=== PATIENT | female | born 1965 | race Two or more races ===

== ENCOUNTER 2016-06-10 07:47 | Emergency (ER) | payer OTHER ==
[2016-06-10 07:56] VITALS: BP 143/92; PULSE 81; TEMP 97.6; BMI 28.1
--- NOTE | 2016-06-10 08:03 | PDOC ---
[id number] No Limitations <Tracey Linares - Last Filed: 06/10/16 10:26> <Parrish Nam - Last Filed: 06/16/16 18:36> - General Chief Complaint: Chest Pain Stated Complaint: LT SIDE PAIN Time Seen by Provider: 06/10/16 08:02 - History of Present Illness Initial Comments: CHIEF COMPLAINT: 51 y/o afebrile female with no significant PMH c/o left sided shoulder and chest pain this morning. HISTORY OF PRESENT ILLNESS: The patient states last night she had some left shoulder pain and works at a [place] [employer] doing quite a bit of lifting but didn' t think anything of it. This morning the pain was unbearable, radiating to her left chest and she felt like the chest pain was so bad she couldn't swallow. She took 2 aspirin and decided to come here when the pain did not subside. She denies REEVES, f/c, dizziness, n/v/d, SOB, cough, hemoptysis, abd pain, hematuria, dysuria. She does admit she was diagnosed with bronchitis last week and is still taking levaquin. Vital signs on arrival are within normal limits. PCP is Dr. Cotter. REVIEW OF SYSTEMS: GENERAL/CONSTITUTIONAL: no fever/chills. No weakness. No weight change. HEAD, EYES, EARS, NOSE AND THROAT: No change in vision. No ear pain or discharge. No sore throat. CARDIOVASCULAR: +left sided chest pain. No shortness of breath. RESPIRATORY: No cough, wheezing, or hemoptysis. GASTROINTESTINAL: No abd pain, nausea, vomiting, diarrhea. GENITOURINARY: No dysuria, frequency, or change in urination. MUSCULOSKELETAL: +left shoulder pain. No neck or back pain. SKIN: No rash or easy bruising. NEUROLOGIC: No headache, vertigo, loss of consciousness, or loss of sensation. PHYSICAL EXAM: GENERAL: The patient is awake, alert, and fully oriented, in no acute distress. She is well appearing, ambulatory and in NAD. HEAD: Normal with no signs of trauma. ENT: Pupils equal, round and reactive to light, extraocular movements intact, sclera anicteric, conjunctiva clear. Neck supple. LUNGS: Clear to auscultation bilaterally. Normal excursion. No respiratory distress or use of accessory muscles. CV: RRR, S1/S2, no MRG. Cap refill < 2 sec. CHEST WALL: No reproducible chest wall pain with palpation. ABDOMEN: Soft, non-distended, non-tender even to deep palpation, no hepatomegaly or splenomegaly, no masses. EXTREMITIES: TTP of left AC joint. Pain reproduced with palpation along entire left scapula. Pain with abduction of left arm > 90 degrees. Patient cannot move left arm over her shoulder or behind her back without pain. NEUROLOGICAL: Normal speech, normal gait. CN II-XII grossly intact. PSYCH: Normal mood, normal affect. SKIN: Warm, dry, normal turgor, no rashes or lesions noted. (Tracey Linares) Past History - Past Medical History Anemia: No Asthma: No Cancer: No Cardiac Disorders: No CVA: No COPD: No CHF: No Dementia: No Diabetes: No GI Disorders: Yes Disorders: No HTN: No Hypercholesterolemia: No Liver Disease: No Seizures: No Thyroid Disease: No - Surgical History Abdominal Surgery: No Appendectomy: No Cardiac Surgery: No Cholecystectomy: No Lung Surgery: No Neurologic Surgery: No Orthopedic Surgery: No - Psycho/Social/Smoking Cessation Hx Suicidal Ideation: No Smoking History: Never smoked Have you smoked in the past 12 months: No Information on smoking cessation initiated: No Hx Alcohol Use: No Drug/Substance Use Hx: No Substance Use Type: None Hx Substance Use Treatment: No <Tracey Linares - Last Filed: 06/10/16 10:26> <Parrish Nam - Last Filed: 06/16/16 18:36> - Past Medical History Allergies/Adverse Reactions: Allergies Allergy/AdvReac Type Severity Reaction Status Date / Time Penicillins Allergy Verified 06/10/16 07:56 Home Medications: Ambulatory Orders NK [No Known Home Medication] 06/10/16 Cardiac Specific PMH - Complaint Specific PMHX Pacemaker: No <Tracey Linares - Last Filed: 06/10/16 10:26> - Vital Signs Last Vital Signs Temp Pulse Resp BP Pulse Ox 97.6 F 81 18 143/92 98 06/10/16 07:54 06/10/16 07:54 06/10/16 07:54 06/10/16 07:54 06/10/16 07:54 Heart Score/ECG Review <Tracey Linares - Last Filed: 06/10/16 10:26> <Parrish Nam - Last Filed: 06/16/16 18:36> - ECG Intrepretation Comment:: Twelve-lead EKG was performed and reviewed by Dr. Nam. There is normal sinus rhythm with a normal rate. The axis is normal. The intervals are normal. There are no ST or T wave abnormalities. Impression: Normal twelve-lead EKG (Tracey Linares) ED Treatment Course - LABORATORY CBC & Chemistry Diagram: 06/10/16 08:13 06/10/16 08:13 <Tracey Linares - Last Filed: 06/10/16 10:26> - LABORATORY CBC & Chemistry Diagram: 06/10/16 08:13 06/10/16 08:13 <Parrish Nam - Last Filed: 06/16/16 18:36> - ADDITIONAL ORDERS Additional order review: 06/10/16 08:13 RBC 4.39 MCV 93.3 MCHC 32.9 RDW 13.2 MPV 8.2 Neutrophils % 44.1 Lymphocytes % 40.3 H Monocytes % 12.7 H Eosinophils % 2.2 Basophils % 0.7 - Medications Given in the ED: ED Medications Discontinued Medications Generic Name Dose Route Start Last Admin Trade Name Polo PRN Reason Stop Dose Admin Acetaminophen 650 mg 06/10/16 09:04 06/10/16 09:15 Tylenol - PO 06/10/16 09:05 650 mg ONCE ONE Administration Ketorolac Tromethamine 30 mg 06/10/16 09:40 06/10/16 09:41 Toradol Injection - IVPUSH 06/10/16 09:41 30 mg ONCE ONE Administration Medical Decision Making <Tracey Linares - Last Filed: 06/10/16 10:26> <Parrish Nam - Last Filed: 06/16/16 18:36> - Medical Decision Making A/P: 51 y/o female with most likely left rotator cuff strain. Given her recent bronchitis and c/o chest pain will r/o ACS. Plan is as follows: 1. Labs 2. Ekg 3. CXR Gave patient PO tylenol Labs unremarkable EKG normal CXR IMPRESSION: No evidence of active pulmonary disease. Pt still in pain. Will give IV toradol. Strong suspicion for a rotator cuff injury. The patient states she feels better after toradol. Will provide a sling and discharge to home with instructions to take Ibuprofen every 6 hours, stretch her affected shoulder and f/u with Dr. lyn within 1 week if no improvement. Suggested refraining from heavy lifting until symptoms improve and provided a work note. Instructed her to return to the ER with any worsening or concerning symptoms. The patient verbalizes understanding of all instructions, has no further questions and is awaiting discharge. (Tracey Linares) The patient was seen and evaluated in conjunction with CELI Linares under my direct supervision, ancillary studies were reviewed. I agree with the plan as outlined by CELI Linares . (Parrish Nam) *DC/Admit/Observation/Transfer <Tracey Linares - Last Filed: 06/10/16 10:26> <Parrish Nam - Last Filed: 06/16/16 18:36> Diagnosis at time of Disposition: Rotator cuff injury Qualifiers: Encounter type: initial encounter Laterality: left Qualified Code(s): S46.002A - Unspecified injury of muscle(s) and tendon(s) of the rotator cuff of left shoulder, initial encounter - Discharge Dispostion Disposition: HOME Condition at time of disposition: Improved - Referrals Referrals: Raudel Cotter MD [Primary Care Provider] - Rudy Lyn MD [Staff Physician] - 1 week - Patient Instructions Printed Discharge Instructions: How to Use a Sling, DI for Rotator Cuff Injury Additional Instructions: Discharge instructions: -Take 600mg of over the counter Ibuprofen for pain every 6 hours WITH FOOD -Use sling for comfort -Alternate between heat and ice to the affected area multiple times per day -Stretch your affected arm multiple times per day -No heavy lifting until improved -Follow up with Dr. Lyn within 1 week if no improvement -Return to the ER with any worsening or concerning symptoms - Post Discharge Activity Work/School Note: Back to Work
[2016-06-10] MEDS ORDERED: ACETAMINOPHEN 325 MG TABLET (FP) PO ONE (09:04)
[2016-06-10 09:06] LABS: BASOPHIL 0.7 % (0-2.0); EOSINOPHIL 2.2 % (0-4.5); MCH 30.7 pg (25.7-33.7); MCHC 32.9 g/dl (32.0-36.0); MEAN CELL VOLUME 93.3 fl (80-96); MEAN PLT VOLUME 8.2 fl (7.5-11.1); NEUTROPHILS 44.1 % (42.8-82.8); PLATELET COUNT 207 K/MM3 (134-434); RDW 13.2 % (11.6-15.6); WHITE BLOOD COUNT 5.3 K/mm3 (4.0-10.0)
[2016-06-10] MEDS ORDERED: ACETAMINOPHEN 325 MG TABLET (FP) ONE (09:17)
[2016-06-10 09:33] LABS: ANION GAP 10 (8-16); BILIRUBIN,TOTAL 0.5 mg/dL (0.2-1.0); CALCIUM 8.8 mg/dL (8.5-10.1); CO2 24 mmol/L (21-32); COCKROFT - GAULT 125.2985; CREATININE 0.7 mg/dL (0.55-1.02); GLUCOSE,RANDOM 82 mg/dL (74-106); SGOT/AST 15 U/L (15-37); SGPT/ALT 21 U/L (12-78)
[2016-06-10 09:35] LABS: ALK PHOS 76 U/L (45-117); TROPONIN I < 0.02 ng/ml (0.00-0.05)
[2016-06-10] MEDS ORDERED: KETOROLAC TROMETHAMINE 30 MG/1 ML VIAL IVPUSH ONE (09:40)
[2016-06-10] MEDS ORDERED: KETOROLAC TROMETHAMINE 30 MG/1 ML VIAL ONE (09:42)
--- NOTE | 2016-06-10 14:14 | EKG ---
Test Reason : Blood Pressure : / mmHG Vent. Rate : 079 BPM Atrial Rate : 079 BPM P-R Int : 158 ms QRS Dur : 098 ms QT Int : 398 ms P-R-T Axes : 050 -23 026 degrees QTc Int : 456 ms NORMAL SINUS RHYTHM WITH SINUS ARRHYTHMIA POSSIBLE LEFT ATRIAL ENLARGEMENT INCOMPLETE RIGHT BUNDLE BRANCH BLOCK BORDERLINE ECG WHEN COMPARED WITH ECG OF 25-AUG-2005 13:24, INCOMPLETE RIGHT BUNDLE BRANCH BLOCK IS NOW PRESENT Confirmed by MEAGAN NAVA, ANDREA ([id number]) on 06/10/2016 2:14:18 PM Referred By: Confirmed By:ANDREA RHODES MD
== END 2016-06-10 11:19 | disposition home or self-care (01) ==
LOC: JER 07:47
PROC: 3E0333Z Introduction of Anti-inflammatory into Peripheral Vein, Percutaneous Approach (ICD-10-PCS; principal; 2016-06-10)
DX: S46.012A Strain of muscle(s) and tendon(s) of the rotator cuff of left shoulder, initial encounter (principal); Y93.F2 Activity, caregiving, lifting; Y93.89 Activity, other specified; Y92.128 Other place in nursing home as the place of occurrence of the external cause; Y99.0 Civilian activity done for income or pay
CPT/HCPCS: 36415; 71020-TC; 80053; 82550; 84484; 84703; 85025; 93005; 93010; 99283-25

== ENCOUNTER 2023-08-11 22:14 | Emergency (ER) | payer BC ==
[2023-08-11 22:41] VITALS: BP 126/75; PULSE 88; RESP 18; TEMP 98.7; BMI 35.4
[2023-08-11] MEDS ORDERED: KETOROLAC TROMETHAMINE 30 MG/1 ML VIAL ONE (22:50)
[2023-08-11] MEDS: KETOROLAC TROMETHAMINE 30 MG/1 ML VIAL IVPUSH ONE (22:56)
[2023-08-11 23:07] LABS: HEMATOCRIT 41.4 % (32.4-45.2); HEMOGLOBIN 13.5 G/dL (10.7-15.3); MCH 30.5 pg (25.7-33.7); MCHC 32.5 g/dl (32.0-36.0); MEAN CELL VOLUME 93.6 fl (80-96); MEAN PLT VOLUME 7.9 fl (7.5-11.1); RBC 4.42 10^6/uL (3.60-5.2); WHITE BLOOD COUNT 9.8 10^3/uL (4.0-10.8)
[2023-08-11 23:21] LABS: ALBUMIN 4.3 g/dl (3.4-5.0); BILIRUBIN,TOTAL 0.7 mg/dl (0.2-1); CALCIUM 9.6 mg/dl (8.5-10.1); CREATININE 0.7 mg/dl (0.6-1.3); POTASSIUM 3.8 mmol/L (3.5-5.1); TOT PROT 7.7 g/dl (6.4-8.2); URIC ACID 4.9 mg/dl (2.6-7.2)
== END 2023-08-11 23:51 | disposition home or self-care (01) ==
LOC: FER 22:14
PROC: 3E0333Z Introduction of Anti-inflammatory into Peripheral Vein, Percutaneous Approach (ICD-10-PCS; principal; 2023-08-11)
DX: M25.511 Pain in right shoulder (principal); M25.512 Pain in left shoulder; M25.561 Pain in right knee; M25.562 Pain in left knee
CPT/HCPCS: 36415; 73030-TC-LT-FY; 73030-TC-RT-FY; 73560-TC-LT-FY; 73560-TC-RT-FY; 80053; 84550; 85027; 86140; 86618; 93970-TC; 99285-25

== ENCOUNTER 2023-12-29 04:07 | Emergency (ER) | payer BC ==
[2023-12-29 04:13] VITALS: TEMP 98.1; BMI 33.9
[2023-12-29] MEDS ORDERED: LIDOCAINE 5% TOPICAL PATCH ONE (04:28)
[2023-12-29] MEDS ORDERED: KETOROLAC TROMETHAMINE 30 MG/1 ML VIAL ONE (04:28)
[2023-12-29] MEDS: LIDOCAINE 5% TOPICAL PATCH TP ONE (04:40)
[2023-12-29] MEDS: KETOROLAC TROMETHAMINE 30 MG/1 ML VIAL IM ONE (04:40)
[2023-12-29 05:09] VITALS: BP 117/64; PULSE 73; RESP 16
[2023-12-29] MEDS ORDERED: HYDROmorphone HCl 2 MG/ML VIAL ONE (06:03)
[2023-12-29] MEDS: HYDROmorphone HCl 2 MG/ML VIAL IM STA (06:09)
[2023-12-29] MEDS ORDERED: predniSONE 20 MG TABLET (UD) ONE (06:29)
[2023-12-29] MEDS: predniSONE 20 MG TABLET (UD) PO ONE (06:33)
[2023-12-29] MEDS ORDERED: ONDANSETRON *ODT* 4 MG TABLET ONE (07:33)
[2023-12-29] MEDS: ONDANSETRON *ODT* 4 MG TABLET SL ONE (07:39)
[2023-12-29] MEDS ORDERED: LIDOCAINE PATCH REMOVAL MC ONE (17:00)
== END 2023-12-29 07:48 | disposition home or self-care (01) ==
LOC: FER 04:07
PROC: 3E013NZ Introduction of Analgesics, Hypnotics, Sedatives into Subcutaneous Tissue, Percutaneous Approach (ICD-10-PCS; principal; 2023-12-29)
PROC: 3E0133Z Introduction of Anti-inflammatory into Subcutaneous Tissue, Percutaneous Approach (ICD-10-PCS; 2023-12-29)
DX: M19.031 Primary osteoarthritis, right wrist (principal)
CPT/HCPCS: 93005; 99284-25; Q0162